=== PATIENT | female | born 1960 | race Caucasian/White ===

== ENCOUNTER 2016-07-07 14:45 | Outpatient (CLI) | payer MEDICARE, MEDICAID | END 2016-07-07 15:00 | disposition home or self-care (01) | DX: R00.2 Palpitations (principal) ==

== ENCOUNTER 2016-07-21 11:02 | Outpatient (CLI) | payer MEDICARE, MEDICAID | END 2016-07-21 11:03 | disposition home or self-care (01) | DX: N64.4 Mastodynia (principal); N63 Unspecified lump in breast ==

== ENCOUNTER 2016-08-09 09:13 | Outpatient (CLI) | payer MEDICARE, MEDICAID ==
[2016-08-09 13:29] LABS: BASOPHILS # (AUTO) 0.1 10^3/uL (0.0-0.1); BASOPHILS % (AUTO) 0.9 %; EOSINOPHILS # (AUTO) 0.2 10^3/uL (0.0-0.7); EOSINOPHILS % (AUTO) 3.6 %; HCT - HEMATOCRIT 41.8 % (37.0-47.0); HGB - HEMOGLOBIN 14.4 g/dL (12.0-16.0); LYMPHOCYTES # (AUTO) 2.2 10^3/uL (1.5-3.5); LYMPHOCYTES % (AUTO) 34.8 %; MEAN CORPUSCULAR HEMOGLOBIN 30.2 pg (27.0-31.0); MEAN CORPUSCULAR HGB CONC 34.5 g/dL (32.0-36.0); MEAN CORPUSCULAR VOLUME 87.6 fL (81.0-99.0); MEAN PLATELET VOLUME 8.1 fL (7.9-10.8); MONOCYTES # (AUTO) 0.5 10^3/uL (0.0-1.0); MONOCYTES % (AUTO) 8.3 %; NEUTROPHILS # (AUTO) 3.4 10^3/uL (1.5-6.6); NEUTROPHILS % (AUTO) 52.4 %; RED BLOOD COUNT 4.78 10^6/uL (4.20-5.40); RED CELL DISTRIBUTION WIDTH 13.6 % (12.0-15.0); UNCORRECTED WHITE BLOOD COUNT 6.4 x10^3/uL; WHITE BLOOD COUNT 6.4 x10^3/uL (4.8-10.8)
[2016-08-09 14:01] LABS: ALBUMIN/GLOBULIN RATIO 1.5 (1.0-2.2); BILIRUBIN,TOTAL 0.4 mg/dL (0.2-1.0); BUN - BLOOD UREA NITROGEN 14 mg/dL (6-20); CALCIUM 9.3 mg/dL (8.5-10.3); CARBON DIOXIDE - CO2 25 mmol/L (21-32); CHLORIDE 103 mmol/L (101-111); CHOL/HDL RATIO 3.7 (<4.4); CHOLESTEROL 194 mg/dL; CREATININE 0.6 mg/dL (0.4-1.0); GFR - MDRD 103 (>89); GLUCOSE 120 mg/dL (70-100); HDL CHOLESTEROL 52 mg/dL; LDL/HDL RATIO 2.3 (<4.4); POTASSIUM 3.9 mmol/L (3.5-5.0); SODIUM 138 mmol/L (135-145); TOTAL PROTEIN 7.2 g/dL (6.7-8.2); TRIGLYCERIDES 105 mg/dL; VLDL CHOLESTEROL 21 mg/dL
== END 2016-08-09 09:14 | disposition home or self-care (01) ==
LOC: LAB.N 09:13
PROVIDERS: ATTEND Family Medicine
DX: E78.5 Hyperlipidemia, unspecified (principal); I10 Essential (primary) hypertension; R00.2 Palpitations
CPT/HCPCS: 36415; 80053; 80061; 84443; 85025

== ENCOUNTER 2017-05-16 07:48 | Outpatient (CLI) | payer MEDICARE, MEDICAID ==
[2017-05-16 12:32] LABS: ALBUMIN 4.2 g/dL (3.2-5.5); ALBUMIN/GLOBULIN RATIO 1.3 (1.0-2.2); ALKALINE PHOSPHATASE 75 IU/L (42-121); ALT ALANINE AMINOTRANSFERASE 26 IU/L (10-60); AST ASPARTATE AMINOTRANSFERASE 19 IU/L (10-42); BILIRUBIN,TOTAL 0.7 mg/dL (0.2-1.0); BUN - BLOOD UREA NITROGEN 13 mg/dL (6-20); CALCIUM 8.9 mg/dL (8.5-10.3); CARBON DIOXIDE - CO2 25 mmol/L (21-32); CHLORIDE 102 mmol/L (101-111); CHOL/HDL RATIO 6.6 (<4.4); CHOLESTEROL 270 mg/dL; CREATININE 0.7 mg/dL (0.4-1.0); GFR - MDRD 86 (>89); GLUCOSE 123 mg/dL (70-100); HDL CHOLESTEROL 41 mg/dL; LDL CHOLESTEROL,CALCULATED 167 mg/dL; LDL/HDL RATIO 4.1 (<4.4); SODIUM 137 mmol/L (135-145); TOTAL PROTEIN 7.4 g/dL (6.7-8.2); VLDL CHOLESTEROL 62 mg/dL
[2017-05-16 12:36] LABS: HB2 TOTAL 16.1 g/dL; HEMOGLOBIN A1C 0.73 g/dL; HEMOGLOBIN A1C % 6.3 % (4.6-6.2)
== END 2017-05-16 07:49 | disposition home or self-care (01) ==
LOC: LAB.N 07:48
PROVIDERS: ATTEND Family Medicine
DX: E78.5 Hyperlipidemia, unspecified (principal); I10 Essential (primary) hypertension; R73.01 Impaired fasting glucose
CPT/HCPCS: 36415; 80053; 80061; 83036; 83721

== ENCOUNTER → 2018-01-04 | Outpatient (CLI) | payer MEDICARE, MEDICAID ==
[2018-01-04 19:31] LABS: BASOPHILS % (AUTO) 0.6 %; EOSINOPHILS # (AUTO) 0.3 10^3/uL (0.0-0.7); EOSINOPHILS % (AUTO) 3.7 %; HGB - HEMOGLOBIN 15.4 g/dL (12.0-16.0); LYMPHOCYTES # (AUTO) 2.5 10^3/uL (1.5-3.5); LYMPHOCYTES % (AUTO) 30.9 %; MEAN CORPUSCULAR HEMOGLOBIN 32.1 pg (27.0-31.0); MEAN CORPUSCULAR HGB CONC 33.7 g/dL (32.0-36.0); MEAN CORPUSCULAR VOLUME 95.3 fL (81.0-99.0); MEAN PLATELET VOLUME 8.2 fL (7.9-10.8); MONOCYTES # (AUTO) 0.7 10^3/uL (0.0-1.0); MONOCYTES % (AUTO) 8.3 %; NEUTROPHILS # (AUTO) 4.6 10^3/uL (1.5-6.6); NEUTROPHILS % (AUTO) 56.5 %; PLT - PLATELET COUNT 145 10^3/uL (130-450); RED BLOOD COUNT 4.81 10^6/uL (4.20-5.40); RED CELL DISTRIBUTION WIDTH 14.4 % (12.0-15.0); WHITE BLOOD COUNT 8.2 x10^3/uL (4.8-10.8)
[2018-01-04 20:00] LABS: ALBUMIN 4.2 g/dL (3.2-5.5); ALBUMIN/GLOBULIN RATIO 1.4 (1.0-2.2); BILIRUBIN,TOTAL 0.8 mg/dL (0.2-1.0); CALCIUM 8.8 mg/dL (8.5-10.3); CREATININE 0.6 mg/dL (0.4-1.0); TOTAL PROTEIN 7.2 g/dL (6.7-8.2)
[2018-01-04 20:12] LABS: THYROID STIMULATING HORMONE 1.77 uIU/mL (0.34-5.60)
[2018-01-04 20:21] LABS: FOLATE 21.28 ng/mL (5.90 - >24.8)
[2018-01-08 17:26] LABS: ANA SCREEN NEGATIVE (NEGATIVE)
== END ==
LOC: LAB.N 08:00
PROVIDERS: ATTEND Nurse Practitioner
DX: R53.83 Other fatigue (principal); E55.9 Vitamin D deficiency, unspecified; I10 Essential (primary) hypertension
CPT/HCPCS: 36415; 80053; 82306; 82607; 82746; 84443; 85025; 86038

== ENCOUNTER 2018-09-14 13:44 | Outpatient (CLI) | payer MEDICARE, MEDICAID ==
--- NOTE | 2018-09-14 15:03 | Mammography Report ---
Reason: LT BREAST AXILLARY TAIL LUMP Procedure Date: 09/14/2018 Accession Number: [id number] / [id number] Procedure: BAHMAN - Diagnostic Dig Bilat CPT Code: FULL RESULT: EXAM: Diagnostic Dig Bilat DATE: 09/14/2018 2:43 PM CLINICAL HISTORY: Left breast axillary tail lump with tenderness. TECHNIQUE: (B) - Bilateral CC and MLO views were obtained. Bilateral ML images are obtained. Focused left breast and axilla ultrasound is performed. COMPARISON: 07/21/2016. PARENCHYMAL PATTERN: (D) - The breast(s) demonstrate(s) heterogeneously dense fibroglandular parenchyma. FINDINGS: Corresponding to the palpable marker in the left axillary tail region is a prominent lymph node with fatty hilum as seen on 3-D mammography. Focused left breast axillary tail and axilla ultrasound is performed which demonstrates multiple prominent lymph nodes with preserved fatty josef and central vascular flow on color Doppler without evidence of capsular blood supply. Subjectively, the central fatty hilum appeared echogenic and prominent within multiple lymph nodes which can be seen with inflammation. There are no suspicious masses, calcifications, or areas of distortion. IMPRESSION: Benign findings. BI-RADS category 2. RECOMMENDATION: (ANNUAL) - Recommend routine annual screening mammography. Clinical correlation to what is felt to likely represent reactive adenopathy is also recommended. BI-RADS CATEGORY: (2) - Benign Findings. STANDARD QUALIFYING STATEMENTS: 1. This examination was not reviewed with the aid of Computer-Aided Detection (CAD). 2. A negative or benign imaging report should not preclude biopsy if clinically suspicious findings are present. 3. Dense breasts may obscure an underlying neoplasm. 4. This examination was reviewed with the aid of 3D breast imaging (tomosynthesis).
== END 2018-09-14 13:45 | disposition home or self-care (01) ==
LOC: DI 13:44
PROVIDERS: ATTEND Family Medicine
DX: N63.32 Unspecified lump in axillary tail of the left breast (principal)
CPT/HCPCS: 76642; 77066; G0279; 77062

== ENCOUNTER 2019-03-20 08:00 | Outpatient (CLI) | payer MEDICARE, MEDICAID ==
[2019-03-20 12:15] LABS: BASOPHILS % (AUTO) 0.5 %; EOSINOPHILS # (AUTO) 0.2 10^3/uL (0.0-0.7); EOSINOPHILS % (AUTO) 2.8 %; HGB - HEMOGLOBIN 14.7 g/dL (12.0-16.0); LYMPHOCYTES # (AUTO) 2.6 10^3/uL (1.5-3.5); LYMPHOCYTES % (AUTO) 34.6 %; MEAN CORPUSCULAR HEMOGLOBIN 30.4 pg (27.0-31.0); MEAN CORPUSCULAR HGB CONC 33.6 g/dL (32.0-36.0); MEAN CORPUSCULAR VOLUME 90.5 fL (81.0-99.0); MEAN PLATELET VOLUME 9.7 fL (7.9-10.8); MONOCYTES # (AUTO) 0.6 10^3/uL (0.0-1.0); MONOCYTES % (AUTO) 8.3 %; NEUTROPHILS % (AUTO) 53.4 %; PLT - PLATELET COUNT 237 10^3/uL (130-450); RED BLOOD COUNT 4.83 10^6/uL (4.20-5.40); RED CELL DISTRIBUTION WIDTH 12.4 % (12.0-15.0); WHITE BLOOD COUNT 7.5 x10^3/uL (4.8-10.8)
[2019-03-20 12:31] LABS: ALBUMIN 4.2 g/dL (3.2-5.5); ALBUMIN/GLOBULIN RATIO 1.2 (1.0-2.2); ALKALINE PHOSPHATASE 77 IU/L (42-121); ALT ALANINE AMINOTRANSFERASE 20 IU/L (10-60); AST ASPARTATE AMINOTRANSFERASE 20 IU/L (10-42); BILIRUBIN,TOTAL 0.7 mg/dL (0.2-1.0); BUN - BLOOD UREA NITROGEN 12 mg/dL (6-20); CALCIUM 9.5 mg/dL (8.5-10.3); CARBON DIOXIDE - CO2 27 mmol/L (21-32); CHLORIDE 101 mmol/L (101-111); CHOL/HDL RATIO 5.9 (<4.4); CHOLESTEROL 287 mg/dL; CREATININE 0.6 mg/dL (0.4-1.0); GFR - MDRD 102 (>89); GLUCOSE 116 mg/dL (70-100); HDL CHOLESTEROL 49 mg/dL; LDL CHOLESTEROL,CALCULATED 186 mg/dL; LDL/HDL RATIO 3.8 (<4.4); SODIUM 138 mmol/L (135-145); TOTAL PROTEIN 7.7 g/dL (6.7-8.2); VLDL CHOLESTEROL 52 mg/dL
== END 2019-03-20 23:59 | disposition home or self-care (01) ==
LOC: LAB.N 08:00
PROVIDERS: ATTEND Family Medicine
DX: E78.5 Hyperlipidemia, unspecified (principal); I10 Essential (primary) hypertension
CPT/HCPCS: 36415; 80053; 80061; 83721; 84443; 85025

== ENCOUNTER 2019-07-19 12:42 | Outpatient (CLI) | payer MEDICARE, MEDICAID | END 2019-07-19 12:43 | disposition critical access hospital (66) | LOC: EMS 12:42 | PROVIDERS: ATTEND Surgery | DX: R07.9 Chest pain, unspecified (principal) | CPT/HCPCS: A0425; A0429 ==

== ENCOUNTER 2019-07-19 13:02 | Emergency (ER) | payer MEDICARE, MEDICAID ==
--- NOTE | 2019-07-19 14:04 | XRAY Report ---
Reason: Chest pain Procedure Date: 07/19/2019 Accession Number: [id number] / [id number] Procedure: XR - Chest 1 View X-Ray CPT Code: 03704 Final Report FULL RESULT: EXAM: CHEST RADIOGRAPHY EXAM DATE: 07/19/2019 01:55 PM. CLINICAL HISTORY: Chest pain. COMPARISON: CHEST 2 VIEW PA/LAT 08/01/2015 10:13 PM. TECHNIQUE: 1 view. FINDINGS: Lungs/Pleura: No focal consolidation. No pleural effusion. No pneumothorax. Lungs are mildly hyperinflated. Mediastinum: Within exam limitations, the cardiomediastinal contour is normal. Other: None. IMPRESSION: No acute findings. RADIA
[2019-07-19 14:09] LABS: BASOPHILS # (AUTO) 0.1 10^3/uL (0.0-0.1); BASOPHILS % (AUTO) 0.7 %; EOSINOPHILS # (AUTO) 0.1 10^3/uL (0.0-0.7); EOSINOPHILS % (AUTO) 0.9 %; HGB - HEMOGLOBIN 14.6 g/dL (12.0-16.0); LYMPHOCYTES # (AUTO) 2.3 10^3/uL (1.5-3.5); LYMPHOCYTES % (AUTO) 23.9 %; MEAN CORPUSCULAR HEMOGLOBIN 31.6 pg (27.0-31.0); MEAN CORPUSCULAR HGB CONC 34.8 g/dL (32.0-36.0); MEAN CORPUSCULAR VOLUME 90.7 fL (81.0-99.0); MONOCYTES # (AUTO) 0.5 10^3/uL (0.0-1.0); MONOCYTES % (AUTO) 5.3 %; NEUTROPHILS # (AUTO) 6.6 10^3/uL (1.5-6.6); NEUTROPHILS % (AUTO) 68.8 %; PLT - PLATELET COUNT 264 10^3/uL (130-450); RED BLOOD COUNT 4.62 10^6/uL (4.20-5.40); RED CELL DISTRIBUTION WIDTH 13.2 % (12.0-15.0); WHITE BLOOD COUNT 9.5 x10^3/uL (4.8-10.8)
[2019-07-19 14:20] LABS: ALBUMIN/GLOBULIN RATIO 1.2 (1.0-2.2); BILIRUBIN,TOTAL 0.7 mg/dL (0.2-1.0); CREATININE 0.7 mg/dL (0.4-1.0); TOTAL PROTEIN 7.4 g/dL (6.7-8.2)
--- NOTE | 2019-07-19 14:20 | ED Physician Documentation ---
History of Present Illness - Stated complaint Stated Complaint: CHEST PAIN - Chief complaint Chief Complaint: Cardiac - History obtained from History obtained from: Patient - History of Present Illness Timing: Today Pain level max: 5 Pain level now: 1 - Additonal information Additional information: Patient is a 59-year-old female who presents to the emergency department with pain in her left bicep. This started approximately noon today and lasted for about 30 minutes she states that it radiated to the left chest. Nothing made it better or worse. Does not have any cardiac history. Does smoke. She states that she normally does not have a high heart rate, but did used to be on beta- blockers for "palpitations". She denies any recent illness. Recent travel. Or recent surgery. No history of cardiac stents. No history of bypass. Review of Systems Constitutional: denies: Fever, Chills Nose: denies: Rhinorrhea / runny nose, Congestion Throat: denies: Sore throat Cardiac: denies: Chest pain / pressure Respiratory: denies: Cough : denies: Dysuria Skin: denies: Rash Musculoskeletal: denies: Neck pain, Back pain Neurologic: denies: Headache PD PAST MEDICAL HISTORY - Past Medical History Past Medical History: Yes Cardiovascular: Arrhythmia Respiratory: COPD, Sleep apnea Endocrine/Autoimmune: None GI: GERD, Chronic diarrhea : None HEENT: Chronic vision loss, Chronic sinusitis, Other Psych: Anxiety, Post traumatic stress disorder, Other Musculoskeletal: Osteoarthritis, Chronic back pain Derm: Other - Past Surgical History Past Surgical History: Yes 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 - Present Medications Home Medications: Ambulatory Orders Medication Instructions Recorded Confirmed Melatonin 1 mg PO QPM PRN 03/14/19 03/14/19 Omeprazole 20 mg PO DAILY 03/14/19 03/14/19 hydrOXYzine pamoate [Hydroxyzine 25 mg PO QID 03/14/19 03/14/19 Pamoate] - Allergies Allergies/Adverse Reactions: Allergies Allergy/AdvReac Type Severity Reaction Status Date / Time ciprofloxacin Allergy Nausea Verified 08/02/15 02:32 morphine AdvReac Dizziness Verified 03/14/19 12:46 - Social History Does the pt smoke?: No Smoking Status: Never smoker Does the pt drink ETOH?: Yes - Immunizations Immunizations are current?: Yes PD ED PE NORMAL - Vitals Vital signs reviewed: Yes - General General: Alert and oriented X 3, No acute distress, Well developed/nourished - HEENT HEENT: PERRL, Moist mucous membranes - Neck Neck: Supple, no meningeal sign - Cardiac Cardiac: RRR, No murmur, Strong equal pulses - Respiratory Respiratory: No respiratory distress, Clear bilaterally - Abdomen Abdomen: Soft, Non tender, Non distended - Derm Derm: Warm and dry - Extremities Extremities: No edema, No calf tenderness / cord - Neuro Neuro: Alert and oriented X 3 - Psych Psych: Normal mood, Normal affect Results - Vitals Vitals: Vital Signs - 24 hr 07/19/19 07/19/19 07/19/19 13:05 13:30 14:26 Temperature 36.6 C Heart Rate 110 H 120 H 118 H Respiratory 20 16 18 Rate Blood Pressure 168/95 H 166/98 H 151/109 H O2 Saturation 99 97 97 07/19/19 07/19/19 07/19/19 15:15 16:41 17:05 Temperature 37.1 C Heart Rate 108 H 86 108 H Respiratory 16 18 18 Rate Blood Pressure 172/90 H 147/99 H 148/118 H O2 Saturation 97 97 96 Oxygen O2 Source Room air - EKG (time done) 1303 Rate: Rate (enter#) (111) Rhythm: Sinus tachycardia [place]: Normal Intervals: Normal [place] QRS: Normal Ischemia: Normal ST segments - Labs Labs: Laboratory Tests 07/19/19 07/19/19 07/19/19 14:00 14:00 14:00 WBC 9.5 RBC 4.62 Hgb 14.6 Hct 41.9 MCV 90.7 MCH 31.6 H MCHC 34.8 RDW 13.2 Plt Count 264 MPV 9.0 Neut # (Auto) 6.6 Lymph # (Auto) 2.3 [place] # (Auto) 0.5 Eos # (Auto) 0.1 Baso # (Auto) 0.1 Absolute Nucleated RBC 0.00 Nucleated RBC % 0.0 D-Dimer Sodium 137 Potassium 3.4 L Chloride 100 L Carbon Dioxide 26 Anion Gap 11.0 BUN 9 Creatinine 0.7 Estimated GFR (MDRD) 86 L Glucose 147 H Calcium 9.0 Total Bilirubin 0.7 AST 29 ALT 37 Alkaline Phosphatase 106 Troponin I High Sens 6.0 Total Protein 7.4 Albumin 4.0 Globulin 3.4 Albumin/Globulin Ratio 1.2 Lipase 30 07/19/19 07/19/19 14:00 15:43 WBC RBC Hgb Hct MCV MCH MCHC RDW Plt Count MPV Neut # (Auto) Lymph # (Auto) [place] # (Auto) Eos # (Auto) Baso # (Auto) Absolute Nucleated RBC Nucleated RBC % D-Dimer 223.6 Sodium Potassium Chloride Carbon Dioxide Anion Gap BUN Creatinine Estimated GFR (MDRD) Glucose Calcium Total Bilirubin AST ALT Alkaline Phosphatase Troponin I High Sens 6.5 Total Protein Albumin Globulin Albumin/Globulin Ratio Lipase - Rads (name of study) cxr Radiology: Prelim report reviewed, EMP read contemporaneously, See rad report (No acute findings. ) PD MEDICAL DECISION MAKING - ED course Complexity details: reviewed results, re-evaluated patient, considered differential (No ST elevation RI, no aortic dissection, no PE, no tension pneumothorax, no aortic aneurysm), d/w patient ED course: Negative high-sensitivity troponin x2. Negative d-dimer. Reviewing her past emergency department visits, she has chronic tachycardia. Patient is very well- appearing, nontoxic. Afebrile. Talking with her friends on her cell phone during her emergency department stay. Patient counseled regarding signs and symptoms for which I believe and urgent re-evaluation would be necessary. Patient with good understanding of and agreement to plan and is comfortable going home at this time This document was made in part using voice recognition software. While efforts are made to proofread this document, sound alike and grammatical errors may occur. Departure - Departure Disposition: 01 Home, Self Care Clinical Impression: Atypical chest pain Condition: Good Instructions: ED Chest Pain Atypical Unkn Cause Follow-Up: DAYSI TREJO MD [Primary Care Provider] - Within 1 week Comments: The cause of your symptoms is unclear today. Return if you worsen. You should start on a baby aspirin daily if you are not ready taking this. Follow-up with your doctor next week for further evaluation and a cardiac stress test. Return if you worsen Discharge Date/Time: 07/19/19 17:10
[2019-07-19 17:06] VITALS: BP 148/118
== END 2019-07-19 17:10 | disposition home or self-care (01) ==
LOC: EDUNIT# → ED 13:02
DX: R07.89 Other chest pain (principal); R00.0 Tachycardia, unspecified
CPT/HCPCS: 36415; 71045; 80053; 83690; 84484; 85025; 85379; 93005; 99284

== ENCOUNTER 2019-07-21 23:17 | Outpatient (CLI) | payer MEDICARE, MEDICAID | END 2019-07-21 23:18 | disposition EMS.NT | LOC: EMS 23:17 | PROVIDERS: ATTEND Surgery | DX: M79.622 Pain in left upper arm (principal) ==

== ENCOUNTER 2020-07-15 12:31 | Outpatient (CLI) | payer MEDICARE, MEDICAID ==
--- NOTE | 2020-07-15 16:16 | CARDIAC PROCEDURE NOTE ---
Stress Test Report Service Date: 07/15/20 Ordering Provider: Dr Guadalupe Indication for Test: Chest pain, atypical. Cardiac Risk Factors: Postmenopausal status, hypertension, cigarette smoker. Type of Stress Test: ETT with Myocardial Perfusion Imaging Procedure: After signing informed consent, the patient underwent a Lv-protocol treadmill stress test with Nuclear myocardial perfusion imaging. Resting heart rate: 82 Peak HR: 132 (82% predicted maximum heart rate for age). Resting blood pressure: 139/93 Peak BP: 160/96 Patient exercised for 3 minutes and 34 seconds on a Lv protocol but all in stage I. The patient developed shortness of breath quickly and had moderate to severe shortness of breath at peak. She had no chest pain. She had pain in her legs with walking. She rated her perceived exertion at 16/20 on the Deondre scale and could not exercise further, she said. Her oxygen saturation was 92% at rest on room air, 92 to 94% with exertion and 95 to 97% in recovery. Resting EKG: Normal sinus rhythm, rate 82, left atrial and right atrial enlargement, RSR' in V1. EKG at peak: Upsloping ST segment depressions in leads II, III, aVF and V3 - V6. Summary: 1) Abnormal resting EKG, consider cor pulmonale. 2) Resting oxygen saturation is only 92% on room air. 3) Poor exercise tolerance. She achieved 82% not 85% of predicted maximum heart rate for age and could only exercise at a stage 1 speed and incline. 4) Nonspecific ST-segment changes develop and are not specific for ischemia, by EKG criteria. IMPRESSION: 1) Nonspecific EKG changes develop with exercise at her achieved 82% of max heart rate. Since she did not achieve 85% predicted max HR, this decreases the sensitivity of the test somewhat. 2) Nuclear images were reported separately and showed: Normal tracer uptake, no areas of fixed or reversible ischemia. Normal LV wall motion and normal Stress LVEF of 87%. RECOMMENDATIONS: 1) Smoking cessation was discussed. 2) Consider PFT eval. 3) The patient reports that she developed shortness of breath and poor appetite in June 2019 which continues now, but was never tested for Covid then. Consider Pulmonology referral. 4) This patient's cardiac risk based on all the above: Moderate.
--- NOTE | 2020-07-15 20:15 | Nuclear Medicine Report ---
PROCEDURE: Rest and exercise myocardial perfusion SPECT with gated imaging and ejection fraction INDICATIONS: LIN - CHEST DISCOMFORT RADIOPHARMACEUTICAL: 12.47 mCi Tc-99m Myoview IV at rest and 40.53 mCi Tc-99m Myoview IV at peak exe rcise. [id number] was performed. TECHNIQUE: Radiopharmaceutical was injected at peak stress test, and also at rest. SPECT images wer e obtained. SPECT myocardial perfusion images were displayed in short axis, horizontal long axis, an d vertical long axis views. Gated images were reviewed using Auto[employer] software. COMPARISON: None available. CARDIAC STRESS: A standard Lin treadmill exercise tolerance test was performed by the patient under the supervision of an attending staff. The patient exercised for 3 minutes and 34 seconds. Hemodynamic data: There is normal blood pressure and heart rate response to exercise stress. Patien t achieved 82% of maximum predicted heart rate at peak exercise. Symptoms: Patient denied chest pain during exercise. EKG: No diagnostic EKG changes of ischemia; no ectopy. FINDINGS: Raw data: There is good myocardial labeling by radiotracer. No significant motion artifacts. Lung- to-heart ratio is (normal is less than 0.46 for tetrafosmin tracer). Left ventricle function: Gated images demonstrate normal left ventricle wall thickening. No segment al wall motion abnormality. No transient ischemic dilation; TID is 1.0 (normal less than 1.30). The left ventricle resting end-diastolic volume is 44 mL. Left ventricle stress ejection fraction is 87 %; normal values are above 45%. Myocardial perfusion: There is normal distribution of activity in the left and right ventricular stacey cardium. No fixed or reversible perfusion defects. IMPRESSION: 1. No stress perfusion defect to indicate ischemia. However, it is noted that the exam demonstrates t he patient achieved 82% rather than the standard 85% of maximum predicted heart rate. This can slight ly lower the sensitivity for detection of ischemia. 2. No EKG changes to indicate ischemia. 3. Ejection fraction of 87%. PQRS ATTESTATIONS: Measure 322 - Is this imaging test primarily performed on a low-risk surgery patient for preoperative evaluation within 30 days preceding their low-risk non-cardiac surgery? Low-risk surgery is defined as cardiac or myocardial infarction less than 1%, including (but not limited to) endoscopic pr ocedures, superficial procedures, cataract surgery, and excisional breast surgery: Answer: No Measure 323 - Is this imaging test performed primarily for the monitoring of an asymptomatic patient who had percutaneous coronary intervention on the visit date or within 2 years of the visit date? An swer: No Measure 324 - Is this imaging test performed primarily for the initial detection and risk assessment on an asymptomatic, low coronary heart disease patient? Low CHD risk definition = clinicians should consider the maximum number of available patient factors used to estimate risk based on [place] (A TP III criteria), typically age, gender, diabetes, smoking status, and use of blood pressure medicati on, and integrate age appropriate estimates for missing elements, such as LDL or standard blood press ure. Answer: No Reviewed by: Joceline Mariee MD on 07/15/2020 8:14 PM PDT Approved by: Joceline Mariee MD on 07/15/2020 8:14 PM PDT Station ID: [id number]
== END 2020-07-15 12:32 | disposition home or self-care (01) ==
LOC: DI 12:31
PROVIDERS: ATTEND Internal Medicine
DX: R07.89 Other chest pain (principal); Z78.0 Asymptomatic menopausal state; I10 Essential (primary) hypertension; F17.210 Nicotine dependence, cigarettes, uncomplicated
CPT/HCPCS: 78452; 93017; A9500

== ENCOUNTER 2021-06-27 20:42 | Outpatient (CLI) | payer MEDICARE, MEDICAID | END 2021-06-27 20:43 | disposition left against medical advice (07) | LOC: EMS 20:42 | DX: R51.9 Headache, unspecified (principal); M79.18 Myalgia, other site; R11.0 Nausea; W10.8XXA Fall (on) (from) other stairs and steps, initial encounter; Y92.008 Other place in unspecified non-institutional (private) residence as the place of occurrence of the external cause ==

== ENCOUNTER 2021-06-29 13:06 | Outpatient (CLI) | payer MEDICARE, MEDICAID | END 2021-06-29 23:59 | disposition critical access hospital (66) | LOC: EMS 13:06 | DX: R51.9 Headache, unspecified (principal); R41.0 Disorientation, unspecified; M54.9 Dorsalgia, unspecified | CPT/HCPCS: A0425; A0427 ==

== ENCOUNTER 2021-06-29 13:28 | Emergency (ER) | payer MEDICARE, MEDICAID ==
--- NOTE | 2021-06-29 13:48 | ED Physician Documentation ---
History of Present Illness - Stated complaint Stated Complaint: GLF - Chief complaint Chief Complaint: Trauma Hd/Nk - History obtained from History obtained from: Patient - History of Present Illness Timing: How many days ago (3) Pain level max: 5 Pain level now: 3 - Additonal information Additional information: Patient is a 61-year-old female who presents to the emergency department after a ground-level fall 3 days ago at home. She states that she slipped and fell backwards hitting her head on the concrete. She states no pain initially, but has gradually developed a headache, mid neck pain and low back pain. Worse with movement, better with rest. No new neurological deficits. 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 No changes to her medications. No loss of consciousness. No vomiting. Does not take any blood thinners. Review of Systems Constitutional: denies: Fever, Chills Respiratory: denies: Cough GI: denies: Nausea, Vomiting, Diarrhea : denies: Dysuria, Frequency, Hesitancy Skin: denies: Rash Musculoskeletal: reports: Neck pain, Back pain Neurologic: reports: Confused (Patient states that she has felt confused), Headache, Head injury PD PAST MEDICAL HISTORY - Past Medical History Past Medical History: Yes Cardiovascular: Arrhythmia Respiratory: COPD, Sleep apnea Endocrine/Autoimmune: None GI: GERD, Chronic diarrhea : None HEENT: Chronic vision loss, Chronic sinusitis, Other Psych: Anxiety, Post traumatic stress disorder, Other Musculoskeletal: Osteoarthritis, Chronic back pain Derm: Other - Past Surgical History Past Surgical History: Yes 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 - Present Medications Home Medications: Ambulatory Orders Medication Instructions Recorded Confirmed Melatonin 1 mg PO QPM PRN 03/14/19 06/29/21 Omeprazole 20 mg PO DAILY 03/14/19 06/29/21 hydrOXYzine pamoate [Hydroxyzine 25 mg PO QID 03/14/19 06/29/21 Pamoate] Docusate Sodium 100Mg Capsule 100 mg PO BID PRN 06/29/21 06/29/21 [Colace 100Mg Capsule] Mirtazapine 12.5 mg PO PRN PRN 06/29/21 06/29/21 - Allergies Allergies/Adverse Reactions: Allergies Allergy/AdvReac Type Severity Reaction Status Date / Time acetaminophen [From Vicodin] Allergy Unknown Verified 06/29/21 14:41 ciprofloxacin Allergy Nausea Verified 06/29/21 14:41 citalopram [From Celexa] Allergy Unknown Verified 06/29/21 14:41 hydrocodone [From Vicodin] Allergy Unknown Verified 06/29/21 14:41 lisinopril Allergy Unknown Verified 06/29/21 14:41 oxycodone [From Percocet] Allergy Unknown Verified 06/29/21 14:41 tramadol Allergy Unknown Verified 06/29/21 14:41 morphine AdvReac Dizziness Verified 06/29/21 14:41 dust Allergy Unknown Uncoded 06/29/21 14:41 - Social History Does the pt smoke?: No Smoking Status: Never smoker Does the pt drink ETOH?: Yes - Immunizations Immunizations are current?: Yes PD ED PE NORMAL - Vitals Vital signs reviewed: Yes - General General: Alert and oriented X 3, No acute distress - HEENT HEENT: Atraumatic, PERRL, Ears normal, Moist mucous membranes, Pharynx benign, Dentition benign - Neck Neck: Supple, no meningeal sign, Other (Mild upper C-spine tenderness to palpation. No step-off or deformity.) - Cardiac Cardiac: RRR - Respiratory Respiratory: No respiratory distress, Clear bilaterally - Abdomen Abdomen: Soft, Non tender, Non distended - Back Back: Other (No thoracic spine tenderness. Mild tenderness around L3-L4. 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 Normal great toe extension bilaterally. no saddle anesthesia) Eye Opening: Spontaneous Motor: Obeys Commands Verbal: Oriented GCS Score: 15 - Psych Psych: Normal mood, Normal affect Results - Vitals Vitals: Vital Signs - 24 hr 06/29/21 06/29/21 13:34 15:47 Temperature 37.1 C Heart Rate 100 75 Respiratory 14 18 Rate Blood Pressure 163/103 H 131/75 H O2 Saturation 95 99 Oxygen O2 Source Room air - Rads (name of study) CT head Radiology: Final report received, EMP read contemporaneously, See rad report CT cervical spine Radiology: Final report received, EMP read contemporaneously, See rad report Lumbar spine x-ray Radiology: Final report received, EMP read contemporaneously, See rad report PD MEDICAL DECISION MAKING - ED course Complexity details: reviewed results, re-evaluated patient, considered differential, d/w patient ED course: No acute findings on head CT or cervical spine CT. Lumbar spine x-ray shows a age-indeterminate L1 compression fracture. Patient is not tender at this site. She states that she does have an old back injury. Likely that this is from that injury. Neurovascular intact. No evidence of cauda equina. Ambulating without difficulty. Declines any pain medication here or for home. Likely has a mild concussion. Patient counseled regarding signs and symptoms for which I believe and urgent re-evaluation would be necessary. Patient with good understanding of and agreement to plan and is comfortable going home at this time This document was made in part using voice recognition software. While efforts are made to proofread this document, sound alike and grammatical errors may occur. Departure - Departure Disposition: 01 Home, Self Care Clinical Impression: Fall from ground level Closed head injury Qualifiers: Encounter type: initial encounter Qualified Code(s): S09.90XA - Unspecified injury of head, initial encounter Condition: Good Instructions: ED Mechanical Fall, ED Head Injury Closed Follow-Up: Ketty Gordon PA [Primary Care Provider] - Within 1 week Comments: Your head CT and cervical spine CT do not show any acute abnormalities. Your lumbar spine x-ray appears to have an old compression fracture, but you are not having pain at the site today. Please follow-up with your doctor for further care. Discharge Date/Time: 06/29/21 15:48
--- NOTE | 2021-06-29 15:00 | CT Report ---
PROCEDURE: HEAD WO INDICATIONS: Fall, head injury TECHNIQUE: Noncontrast 4.5 mm thick angled axial sections acquired from the foramen magnum to the vertex. For r adiation dose reduction, the following was used: automated exposure control, adjustment of mA and/or kV according to patient size. COMPARISON: None. FINDINGS: Image quality: Excellent. CSF spaces: Basal cisterns are patent. No extra-axial fluid collections. Ventricles are normal in size and shape. Brain: No midline shift. No intracranial masses or hemorrhage. Buck-white matter interface is norm al. Skull and face: Calvarium and visualized facial bones are intact, without suspicious lesions. Sinuses: Visualized sinuses and mastoids are clear. IMPRESSION: No acute intracranial finding. Reviewed by: Beau Moreno MD on 06/29/2021 2:58 PM PDT Approved by: Beau Moreno MD on 06/29/2021 2:58 PM PDT Station ID: [id number]
--- NOTE | 2021-06-29 15:06 | XRAY Report ---
PROCEDURE: Lumbar Spine 2 View INDICATIONS: fall, back pain TECHNIQUE: 2 views of the lumbar spine were acquired. COMPARISON: October 24, 2013 FINDINGS: Bones: 5 [id number] vertebrae are present. Diffuse osteopenia. Levocurvature of the lumbar spin e with endplate osteophytosis, disc space height loss, and facet arthrosis. Mild anterior compression deformity of L1, age indeterminate. The remaining vertebral body heights are maintained. Soft tissues: Overlying bowel gas pattern is normal. Calcified atheromatous change of the aorta. IMPRESSION: Mild anterior compression deformity L1, age indeterminate. Consider correlation with poi nt tenderness. Reviewed by: Vance Orantes MD on 06/29/2021 3:05 PM PDT Approved by: Vance Orantes MD on 06/29/2021 3:05 PM PDT Station ID: [id number]
--- NOTE | 2021-06-29 15:07 | CT Report ---
PROCEDURE: CERVICAL SPINE WO INDICATIONS: Trauma, fall, neck injury TECHNIQUE: Noncontrast 3 mm thick sections acquired from the skull base to the T4 level. Sagittal and coronal r eformats were then constructed. For radiation dose reduction, the following was used: automated exp osure control, adjustment of mA and/or kV according to patient size. COMPARISON: None. FINDINGS: Image quality: Excellent. Bones: No fracture or dislocation. Moderate to severe degenerative changes in the mid cervical spine catheter present by disc height loss with ossific ridging and sclerosis of the endplates. Varying deg fabian of facet and uncovertebral arthropathy throughout the cervical spine. Soft tissues: Prevertebral soft tissues are normal in thickness. No paravertebral hematomas. No ap ical pneumothoraces. IMPRESSION: No CT evidence of acute or metastatic cervical spine injury. Reviewed by: eBau Moreno MD on 06/29/2021 3:06 PM PDT Approved by: Beau Moreno MD on 06/29/2021 3:06 PM PDT Station ID: [id number]
[2021-06-29 15:48] VITALS: BP 131/75
== END 2021-06-29 15:48 | disposition home or self-care (01) ==
LOC: EDUNIT# → ED 13:28
DX: S09.90XA Unspecified injury of head, initial encounter (principal); W01.198A Fall on same level from slipping, tripping and stumbling with subsequent striking against other object, initial encounter
CPT/HCPCS: 99282; 99284

== ENCOUNTER 2021-08-08 16:20 | Outpatient (CLI) | payer MEDICARE, MEDICAID | END 2021-08-08 16:21 | disposition critical access hospital (66) | LOC: EMS 16:20 | DX: K59.00 Constipation, unspecified (principal); R10.30 Lower abdominal pain, unspecified | CPT/HCPCS: A0425; A0429 ==

== ENCOUNTER 2021-08-08 16:42 | Emergency (ER) | payer MEDICARE, MEDICAID ==
[2021-08-08 17:22] VITALS: BP 114/82
[2021-08-08 17:23] LABS: BASOPHILS # (AUTO) 0.1 10^3/uL (0.0-0.1); BASOPHILS % (AUTO) 0.8 %; EOSINOPHILS # (AUTO) 0.2 10^3/uL (0.0-0.7); EOSINOPHILS % (AUTO) 2.6 %; HCT - HEMATOCRIT 40.1 % (37.0-47.0); HGB - HEMOGLOBIN 14.3 g/dL (12.0-16.0); LYMPHOCYTES # (AUTO) 2.8 10^3/uL (1.5-3.5); LYMPHOCYTES % (AUTO) 31.3 %; MEAN CORPUSCULAR HEMOGLOBIN 32.1 pg (27.0-31.0); MEAN CORPUSCULAR HGB CONC 35.7 g/dL (32.0-36.0); MEAN CORPUSCULAR VOLUME 90.1 fL (81.0-99.0); MEAN PLATELET VOLUME 9.1 fL (7.9-10.8); MONOCYTES # (AUTO) 0.7 10^3/uL (0.0-1.0); MONOCYTES % (AUTO) 8.2 %; NEUTROPHILS # (AUTO) 5.1 10^3/uL (1.5-6.6); NEUTROPHILS % (AUTO) 56.9 %; PLT - PLATELET COUNT 295 10^3/uL (130-450); RED BLOOD COUNT 4.45 10^6/uL (4.20-5.40)
[2021-08-08 17:36] LABS: ALBUMIN 3.7 g/dL (3.2-5.5); ALBUMIN/GLOBULIN RATIO 0.9 (1.0-2.2); BILIRUBIN,TOTAL 0.6 mg/dL (0.2-1.0); CALCIUM 9.4 mg/dL (8.5-10.3); CREATININE 0.6 mg/dL (0.4-1.0); POTASSIUM 2.8 mmol/L (3.5-5.0); TOTAL PROTEIN 7.6 g/dL (6.7-8.2)
--- NOTE | 2021-08-08 17:39 | ED Physician Documentation ---
History of Present Illness - Stated complaint Stated Complaint: ABD PX - Chief complaint Chief Complaint: Abd Pain - History obtained from History obtained from: Patient, EMS - History of Present Illness Pain level max: 8 Pain level now: 2 - Additonal information Additional information: Patient is a 61-year-old female who states that she has had intermittent abdominal pain for the past 2.5 months. She states that she has been treated by her doctor for "constipation". She has never had a colonoscopy. She states that often she will go days without eating but has not had a bowel movement except for 1 small bowel movement in the past 2 and half months. No vomiting. No fevers. No chills. Nothing makes it better or worse. Review of Systems Constitutional: denies: Fever, Chills Throat: denies: Sore throat Cardiac: denies: Chest pain / pressure, Palpitations Respiratory: denies: Cough GI: reports: Abdominal Pain (Occasionally has cramping diffuse abdominal pain). denies: Vomiting, Diarrhea, Hematemesis, Bloody / black stool : denies: Dysuria, Frequency, Hesitancy Skin: denies: Rash Musculoskeletal: denies: Neck pain, Back pain Neurologic: denies: Headache PD PAST MEDICAL HISTORY - Past Medical History Past Medical History: Yes Cardiovascular: Arrhythmia Respiratory: COPD, Sleep apnea Endocrine/Autoimmune: None GI: GERD, Chronic diarrhea : None HEENT: Chronic vision loss, Chronic sinusitis, Other Psych: Anxiety, Post traumatic stress disorder, Other Musculoskeletal: Osteoarthritis, Chronic back pain Derm: Other - Past Surgical History Past Surgical History: Yes Ortho: Arthroscopic surgery /TWO WAY [employer]: Other - Present Medications Home Medications: Ambulatory Orders Medication Instructions Recorded Confirmed Melatonin 1 mg PO QPM PRN 03/14/19 06/29/21 Omeprazole 20 mg PO DAILY 03/14/19 06/29/21 hydrOXYzine pamoate [Hydroxyzine 25 mg PO QID 03/14/19 06/29/21 Pamoate] Docusate Sodium 100Mg Capsule 100 mg PO BID PRN 06/29/21 06/29/21 [Colace 100Mg Capsule] Mirtazapine 12.5 mg PO PRN PRN 06/29/21 06/29/21 Amox/Clav 875/125 [Augmentin] 1 tab PO Q12H #20 tablet 08/08/21 - Allergies Allergies/Adverse Reactions: Allergies Allergy/AdvReac Type Severity Reaction Status Date / Time acetaminophen [From Vicodin] Allergy Unknown Verified 08/08/21 17:06 ciprofloxacin Allergy Nausea Verified 08/08/21 17:06 citalopram [From Celexa] Allergy Unknown Verified 08/08/21 17:06 hydrocodone [From Vicodin] Allergy Unknown Verified 08/08/21 17:06 lisinopril Allergy Unknown Verified 08/08/21 17:06 oxycodone [From Percocet] Allergy Unknown Verified 08/08/21 17:06 tramadol Allergy Unknown Verified 08/08/21 17:06 morphine AdvReac Dizziness Verified 08/08/21 17:06 dust Allergy Unknown Uncoded 08/08/21 17:06 - Social History Does the pt smoke?: No Smoking Status: Never smoker Does the pt drink ETOH?: Yes - Immunizations Immunizations are current?: Yes PD ED PE NORMAL - Vitals Vital signs reviewed: Yes - General General: Alert and oriented X 3, No acute distress - HEENT HEENT: Moist mucous membranes - Neck Neck: Supple, no meningeal sign - Cardiac Cardiac: RRR, Strong equal pulses - Respiratory Respiratory: No respiratory distress, Clear bilaterally - Abdomen Abdomen: Soft, Non tender, Non distended - Back Back: No CVA TTP, No spinal TTP - Derm Derm: Warm and dry - Extremities Extremities: No edema - Neuro Neuro: Alert and oriented X 3 Results - Vitals Vitals: Vital Signs - 24 hr 08/08/21 08/08/21 08/08/21 17:00 17:20 21:00 Temperature 36.7 C 36.7 C Heart Rate 90 86 86 Respiratory 18 17 17 Rate Blood Pressure 143/85 H 114/82 H 114/82 H O2 Saturation 99 100 100 Oxygen O2 Source Room air - Labs Labs: Laboratory Tests 08/08/21 08/08/21 08/08/21 17:17 17:17 17:50 WBC 9.0 RBC 4.45 Hgb 14.3 Hct 40.1 MCV 90.1 MCH 32.1 H MCHC 35.7 RDW 12.0 Plt Count 295 MPV 9.1 Neut # (Auto) 5.1 Lymph # (Auto) 2.8 [place] # (Auto) 0.7 Eos # (Auto) 0.2 Baso # (Auto) 0.1 Absolute Nucleated RBC 0.00 Nucleated RBC % 0.0 Sodium 134 L Potassium 2.8 L Chloride 96 L Carbon Dioxide 26 Anion Gap 12.0 BUN 11 Creatinine 0.6 Estimated GFR (MDRD) 102 Glucose 112 H Calcium 9.4 Total Bilirubin 0.6 AST 30 ALT 26 Alkaline Phosphatase 92 Total Protein 7.6 Albumin 3.7 Globulin 3.9 Albumin/Globulin Ratio 0.9 L Lipase 26 Urine Color YELLOW Urine Clarity CLEAR Urine pH 6.0 Ur Specific [place] <=1.005 Urine Protein NEGATIVE Urine Glucose (UA) NEGATIVE Urine Ketones TRACE Urine Occult Blood NEGATIVE Urine Nitrite NEGATIVE Urine Bilirubin NEGATIVE Urine Urobilinogen 1 (NORMAL) Ur Leukocyte Esterase NEGATIVE Ur Microscopic Review NOT INDICATED Urine Culture Comments NOT INDICATED - Rads (name of study) CT abd/pelvis Radiology: Final report received, EMP read contemporaneously, See rad report PD MEDICAL DECISION MAKING - ED course Complexity details: reviewed results, re-evaluated patient, considered differential, d/w patient ED course: CT scan is concerning for potential colon mass on my review. There is a potential of diverticulitis. Discussed risks and benefits of antibiotic therapy, patient likes antibiotic therapy at this time. She understands that there is a risk of unnecessary antibiotic usage as well as C. difficile colitis. She will follow-up with general surgery for colonoscopy as she has never had one. Recommend she do this expeditiously. She will follow-up with her doctor this week for that. Patient counseled regarding signs and symptoms for which I believe and urgent re-evaluation would be necessary. Patient with good understanding of and agreement to plan and is comfortable going home at this time This document was made in part using voice recognition software. While efforts are made to proofread this document, sound alike and grammatical errors may occur. Patient did have 3-4 bowel movements while in the emergency department. Nonbloody. Feels better CT RESULTS: IMPRESSION: 1. Diverticulosis. There is thickening of sigmoid colon compatible with acute diverticulitis. After adequate treatment of acute illness, colonoscopy is suggested as colon cancer could have a similar CT appearance. No diverticular perforation or abscess. 2. Hepatic steatosis. 3. Mild compression deformity of L1. Departure - Departure Disposition: 01 Home, Self Care Clinical Impression: Diverticulitis Abdominal pain Qualifiers: Abdominal location: left lower quadrant Qualified Code(s): R10.32 - Left lower quadrant pain Condition: Good Instructions: ED Diverticulitis Follow-Up: Ketty Gordon PA [Primary Care Provider] - Alin Graff MD [Provider Admit Priv/Credential] - Silvio Nagy MD [Provider Admit Priv/Credential] - Prescriptions: Amox/Clav 875/125 [Augmentin] 1 tab PO Q12H #20 tablet Comments: Please follow-up with your doctor for further care. You can follow-up with the surgery office to discuss having a colonoscopy. You should have a colonoscopy upon completion of the antibiotic course for diverticulitis to exclude a potential colon mass. Please take all antibiotics until gone. Your prescriptions were sent to [facility] in [place]. CT RESULTS:
[2021-08-08] MEDS ORDERED: SODIUM CHLORIDE 0.9% 1,000 ML IV STA (17:59)
[2021-08-08 18:00] LABS: BILIRUBIN,URINE NEGATIVE (NEGATIVE); GLUCOSE, URINE (UA) NEGATIVE (NEGATIVE); KETONES,URINE (UA) TRACE mg/dL (NEGATIVE); LEUKOCYTE ESTERASE, URINE NEGATIVE (NEGATIVE); NITRITE,URINE NEGATIVE (NEGATIVE); OCCULT BLOOD,URINE NEGATIVE (NEGATIVE); PROTEIN,URINE NEGATIVE (NEGATIVE); UROBILINOGEN,URINE 1 (NORMAL) E.U./dL (NORMAL)
[2021-08-08] MEDS ORDERED: POTASSIUM CHLORIDE 20 MEQ TABLET PO STA (18:00)
[2021-08-08 18:03] LABS: CLARITY,URINE CLEAR (CLEAR)
--- NOTE | 2021-08-08 20:16 | CT Report ---
PROCEDURE: Abdomen/Pelvis WO INDICATIONS: diffuse abd pain TECHNIQUE: Noncontrast 5 mm thick sections acquired from the diaphragms to the symphysis. 5 mm coronal and sagi ttal reformats were then performed. For radiation dose reduction, the following was used: automated exposure control, adjustment of mA and/or kV according to patient size. COMPARISON: Lumbar spine x-ray 2 views, 06/29/2021. FINDINGS: Image quality: Excellent. ABDOMEN: Lung bases: Bibasilar atelectasis. Heart size is normal. Solid organs: Liver is normal in size. Mild hepatic steatosis. Spleen is normal in size. Gallbladder is contracted. Pancreas is normal in contours. No adrenal nodules. Kidneys are normal in size, wi thout hydronephrosis or nephrolithiasis. Peritoneum and bowel: Unenhanced bowel loops demonstrate normal wall thickness and caliber. There a re multiple colonic diverticula, most numerous in sigmoid colon. There is segmental wall thickening o f sigmoid colon, compatible with acute diverticulitis. Normal appendix. No free fluid or air. Nodes and vessels: No retroperitoneal or mesenteric adenopathy by size criteria. Aorta and inferior vena cava are normal in caliber. Severe atherosclerosis. Miscellaneous: No ventral hernias. PELVIS: Genitourinary: Bladder wall thickness is normal. Miscellaneous: No inguinal hernias or adenopathy. Bones: No suspicious bony lesions. Note is deformity of L1 suggesting mild chronic compression fract ure. Severe degenerative disc and facet disease in lumbar spine. IMPRESSION: 1. Diverticulosis. There is thickening of sigmoid colon compatible with acute diverticulitis. After a dequate treatment of acute illness, colonoscopy is suggested as colon cancer could have a similar CT appearance. No diverticular perforation or abscess. 2. Hepatic steatosis. 3. Mild compression deformity of L1. Reviewed by: Carole So MD on 08/08/2021 8:15 PM PDT Approved by: Carole So MD on 08/08/2021 8:15 PM PDT Station ID: [id number]
[2021-08-08] MEDS ORDERED: AMOX/CLAV 875 MG/125 MG TABLET PO STA (20:49)
== END 2021-08-08 21:41 | disposition home or self-care (01) ==
LOC: EDUNIT# → ED 16:42
DX: K57.32 Diverticulitis of large intestine without perforation or abscess without bleeding (principal)
CPT/HCPCS: 36415; 74176; 80053; 81003; 83690; 85025; 99284; A9270; 81001; 87086

== ENCOUNTER 2021-08-10 10:54 | Outpatient (CLI) | payer MEDICARE, MEDICAID ==
--- NOTE | 2021-08-10 13:43 | Ultrasound Report ---
ULTRASOUND OF LEFT AXILLA: 08/10/2021 LT BREAST ULTRASOUND AT [facility] 09/14/2018 IMAGES AVAILABLE. Color flow and real-time ultrasound of the left axilla were performed. Buck scale images of the real -time examination were reviewed. No significant abnormalities were seen sonographically in the left axilla. Small left axillary nodes have a preserved fatty hilum and no cortical thickening. IMPRESSION: BENIGN There is no sonographic evidence of malignancy in the left axilla. No enlarged or suspicious lymph node cortical thickening. Patient is due for screening mammogram. This exam was interpreted at Station ID: [id number]. Electronically Signed By: Bobby Mccormick M.D. slc/:08/10/2021 12:19:46 Ultrasound BI-RADS: 2 Benign BI-RADS CATEGORY: (2) - 2 RECOMMENDATION: (ADDMAM) - Recommend additional mammographic views. [id number] Immediate follow-up LATERALITY: (B)
== END 2021-08-10 10:55 | disposition home or self-care (01) ==
LOC: DI 10:54
PROVIDERS: ATTEND Surgery
DX: R59.0 Localized enlarged lymph nodes (principal)

== ENCOUNTER 2021-10-20 12:24 | Outpatient (CLI) | payer MEDICARE, MEDICAID ==
--- NOTE | 2021-10-20 14:26 | MRI Report ---
PROCEDURE: Brain W/O INDICATIONS: HEADACHE TECHNIQUE: Noncontrast axial T1 spin echo, axial T2 fast spin echo, sagittal and axial FLAIR, coronal T2 fast sp in echo, axial gradient echo, axial diffusion and ADC through the brain. COMPARISON: None. FINDINGS: Image quality: Excellent. CSF Spaces: Basal cisterns are patent. No extra-axial fluid collections. Ventricles are normal in size and shape. Brain: No intracranial masses or hemorrhage. Mild diffuse cerebral volume loss. Mild degree of patc hy high FLAIR signal within the periventricular and subcortical white matter. Buck/white matter inter face is normal. Brainstem appears normal. Diffusion-weighted images demonstrate no acute ischemic i nsult. No chronic ischemic insults. Normal intravascular flow voids are present. Skull and face: Calvarium has normal marrow signal. Orbits appear normal. Sinuses: Small amount of left mastoid fluid. Sinuses and mastoids are otherwise clear. IMPRESSION: 1. Mild volume loss and small vessel ischemic disease. 2. Small amount of left mastoid fluid. 3. No acute process. No recent infarct. Reviewed by: Melissa Salazar MD on 10/20/2021 2:25 PM PDT Approved by: Melissa Salazar MD on 10/20/2021 2:25 PM PDT Station ID: [id number]
== END 2021-10-20 12:25 | disposition home or self-care (01) ==
LOC: DI 12:24
PROVIDERS: ATTEND Physician Assistant
DX: R51.9 Headache, unspecified (principal); I67.82 Cerebral ischemia

== ENCOUNTER 2021-11-18 08:05 | Outpatient (CLI) | payer MEDICARE, MEDICAID ==
[2021-11-18 12:00] LABS: BASOPHILS # (AUTO) 0.1 10^3/uL (0.0-0.1); BASOPHILS % (AUTO) 1.1 %; EOSINOPHILS # (AUTO) 0.2 10^3/uL (0.0-0.7); EOSINOPHILS % (AUTO) 3.3 %; HCT - HEMATOCRIT 44.7 % (37.0-47.0); HGB - HEMOGLOBIN 15.3 g/dL (12.0-16.0); LYMPHOCYTES # (AUTO) 2.5 10^3/uL (1.5-3.5); LYMPHOCYTES % (AUTO) 38.2 %; MEAN CORPUSCULAR HEMOGLOBIN 31.4 pg (27.0-31.0); MEAN CORPUSCULAR HGB CONC 34.2 g/dL (32.0-36.0); MEAN CORPUSCULAR VOLUME 91.8 fL (81.0-99.0); MEAN PLATELET VOLUME 9.9 fL (7.9-10.8); MONOCYTES # (AUTO) 0.6 10^3/uL (0.0-1.0); MONOCYTES % (AUTO) 9.8 %; NEUTROPHILS # (AUTO) 3.1 10^3/uL (1.5-6.6); NEUTROPHILS % (AUTO) 47.3 %; PLT - PLATELET COUNT 242 10^3/uL (130-450); RED BLOOD COUNT 4.87 10^6/uL (4.20-5.40); RED CELL DISTRIBUTION WIDTH 13.7 % (12.0-15.0); WHITE BLOOD COUNT 6.5 x10^3/uL (4.8-10.8)
[2021-11-18 12:45] LABS: ALBUMIN 4.3 g/dL (3.2-5.5); ALBUMIN/GLOBULIN RATIO 1.2 (1.0-2.2); ALKALINE PHOSPHATASE 77 IU/L (42-121); ALT ALANINE AMINOTRANSFERASE 60 IU/L (10-60); AST ASPARTATE AMINOTRANSFERASE 51 IU/L (10-42); BILIRUBIN,TOTAL 0.6 mg/dL (0.2-1.0); BUN - BLOOD UREA NITROGEN 8 mg/dL (6-20); CALCIUM 9.5 mg/dL (8.5-10.3); CARBON DIOXIDE - CO2 32 mmol/L (21-32); CHLORIDE 100 mmol/L (101-111); CHOL/HDL RATIO 4.8 (<4.4); CHOLESTEROL 255 mg/dL; CREATININE 0.6 mg/dL (0.4-1.0); GFR - MDRD 102 (>89); GLUCOSE 115 mg/dL (70-100); HDL CHOLESTEROL 53 mg/dL; LDL CHOLESTEROL,CALCULATED 181 mg/dL; LDL/HDL RATIO 3.4 (<4.4); POTASSIUM 3.4 mmol/L (3.5-5.0); SODIUM 141 mmol/L (135-145); THYROID STIMULATING HORMONE 3.54 uIU/mL (0.34-5.60); TOTAL PROTEIN 7.9 g/dL (6.7-8.2); TRIGLYCERIDES 105 mg/dL; VLDL CHOLESTEROL 21 mg/dL
[2021-11-18 12:55] LABS: ESTIMATED AVERAGE GLUCOSE 100 mg/dL (70-100); HEMOGLOBIN A1c% 5.1 % (4.27-6.07)
== END 2021-11-18 08:06 | disposition home or self-care (01) ==
LOC: LAB.N 08:05
PROVIDERS: ATTEND Physician Assistant
DX: E87.6 Hypokalemia (principal); E78.5 Hyperlipidemia, unspecified; R73.03 Prediabetes; K59.00 Constipation, unspecified
CPT/HCPCS: 36415; 80053; 80061; 83036; 83721; 84443; 85025

== ENCOUNTER 2021-11-26 13:09 | Outpatient (CLI) | payer MEDICARE, MEDICAID | END 2021-11-26 13:10 | disposition critical access hospital (66) | LOC: EMS 13:09 | DX: Z04.6 Encounter for general psychiatric examination, requested by authority (principal); R45.851 Suicidal ideations | CPT/HCPCS: A0425; A0429 ==